=== PATIENT | female | born 1970 | race Two or more races ===

== ENCOUNTER 2023-01-13 15:40 | Emergency (ER) | payer OTHER ==
[~2023-01-13] VITALS: Ht 154.9 cm; Wt 57.2 kg
[~2023-01-13 15:40] MED LIST: LUNESTA2 MG PO
[2023-01-13 17:55] LABS: HEMATOCRIT 37.4 % (36.0-45.00); HEMOGLOBIN 12.3 g/dL (12.0-15.00); MEAN CELL VOLUME 85.9 fL (80.00-100.00); MEAN CORPUSCULAR HEMOGLOBIN 28.3 pg (27.00-32.0); PLATELET COUNT 217 K/uL (150-450); RED BLOOD COUNT 4.35 M/uL (4.00-6.00); RED CELL DISTRIBUTION WIDTH 13.4 % (11.5-14.5)
== END 2023-01-13 19:02 | disposition home or self-care (01) ==
LOC: ER 15:40
PROVIDERS: General Practice
DX: U07.1 COVID-19 (principal); R53.81 Other malaise